=== PATIENT | male | born 1990 | race Two or more races ===

== ENCOUNTER 2019-03-17 21:28 | Inpatient (IN) | payer MEDICAID ==
[~2019-03-17] VITALS: Ht 162.6 cm; Wt 66.8 kg
--- NOTE | 2019-03-17 22:00 | NUR ---
YAHAIRA. C/O GEN ABDOMINAL PAIN X 1 DAY 02/26 PASCUAL, +N/-V/-D, VSS TO ER BED 3 AWAITING MED EVAL
[2019-03-17] MEDS ORDERED: ONDANSETRON HCL/PF 4 MG/2 ML VIAL ONE (22:16)
[2019-03-17] MEDS ORDERED: MORPHINE SULFATE INJ 2 MG/ML DISP.SYRIN ONE ×2 (22:16→22:17)
--- NOTE | 2019-03-17 22:19 | NUR ---
PT TAKEN TO CT
[2019-03-17] MEDS ORDERED: ONDANSETRON HCL/PF 4 MG/2 ML VIAL IVP ONE (22:30)
[2019-03-17] MEDS ORDERED: IV NS 0.9% 1,000 ML BAG IV ONE (22:30)
[2019-03-17] MEDS ORDERED: MORPHINE SULFATE INJ 2 MG/ML DISP.SYRIN IV ONE (22:30)
[2019-03-17 22:35] LABS: APPEARANCE,URINE Clear (CLEAR); BILIRUBIN,URINE SMALL (NEGATIVE); BLOOD, URINE Trace-intact Ery/uL (NEGATIVE); COLOR,URINE Yellow (YELLOW); KETONES,URINE 80 (NEGATIVE); LEUKOCYTE ESTERASE ,URINE Negative (NEGATIVE); NITRITE, URINE Negative (NEGATIVE); PH,URINE 6.5 (5.0-8.0); PROTEIN,URINE Negative (NEGATIVE); UGLUCOSE Negative (NEGATIVE)
[2019-03-17 22:45] LABS: BASOPHILS # (AUTO) 0.1 /CMM (0.0-0.2); BASOPHILS % (AUTO) 0.4 % (0.0-2.0); HEMATOCRIT 43 % (39-51); HEMOGLOBIN 14.4 g/dL (13.5-17.5); LYMPHOCYTES # (AUTO) 1.3 /CMM (0.8-4.8); MEAN CORPUSCULAR HGB CONC 33 g/dl (31.0-36.0); MEAN CORPUSCULAR VOLUME 87 fL (80-96); MONOCYTES # (AUTO) 0.8 /CMM (0.1-1.30); NEUTROPHILS # (AUTO) 13.9 /CMM (1.8-8.9); NEUTROPHILS % (AUTO) 86.6 % (43.0-81.0); PLATELET COUNT (AUTO) 247 /CMM (150-450); RED BLOOD CELL COUNT(AUTO) 4.96 MIL/uL (4.5-6.0); WHITE BLOOD COUNT (AUTO) 16.1 K/uL (4.3-11.0)
--- NOTE | 2019-03-17 22:51 | NUR ---
LINE ESTABLISHED, BLOOD SENT TO LAB FLUIDS RUNING, CONNECTED TO PATIENT FINANCIAL ADVOCATE VSS
[2019-03-17 22:52] LABS: CALCIUM, SERUM 8.6 mg/dL (8.5-10.1); CREATININE 0.8 mg/dL (0.6-1.3); POTASSIUM 3.6 mmol/L (3.5-5.1)
[2019-03-17 22:58] LABS: BILIRUBIN,DIRECT 0.2 mg/dL (0.0-0.2); BILIRUBIN,TOTAL 0.7 mg/dL (0.2-1.0); TOTAL PROTEIN, SERUM 7.2 g/dL (6.4-8.2)
--- NOTE | 2019-03-17 23:06 | NUR ---
MARTHA BRITTON ON THE PHONE WITH DR. STEINER (FINANCIAL OPERATIONS CONSULTANT SURGEON)
[2019-03-17] MEDS ORDERED: PIPERACILLIN /TAZOBACTAM 3.375 G VIAL IV ONE (23:15)
[2019-03-17] MEDS ORDERED: MORPHINE SULFATE INJ 2 MG/ML DISP.SYRIN IV PRN (23:30)
[2019-03-17] MEDS ORDERED: ONDANSETRON HCL/PF 4 MG/2 ML VIAL IVP PRN (23:30)
[2019-03-17] MEDS ORDERED: MAGNESIUM HYDROXIDE 30 ML UDC PO PRN (23:30)
[2019-03-17] MEDS ORDERED: MAG HYDROX/AL HYDROX/SIMETH 30 ML UDC PO PRN (23:30)
[2019-03-17] MEDS ORDERED: PIPERACILLIN /TAZOBACTAM 3.375 G in IV D5W 50 ML IV ONE (23:30)
[2019-03-17] MEDS ORDERED: ACETAMINOPHEN 325 MG TABLET PO PRN (23:30)
[2019-03-17] MEDS ORDERED: ACETAMINOPHEN 650 MG/SUPP.RECT RC PRN (23:30)
--- NOTE | 2019-03-17 23:30 | NUR ---
BED ASSIGNMENT 314-2
--- NOTE | 2019-03-17 23:37 | NUR ---
CALLED IN REPORT TO CHRISTIANO NERI
[2019-03-17] MEDS ORDERED: ENOXAPARIN SODIUM 40 MG/0.4 ML DISP.SYRIN SQ ONE (23:45)
[2019-03-18] VITALS (14 sets, daily range): BP systolic 94–119; BP diastolic 46–99
--- NOTE | 2019-03-18 00:08 | NUR ---
RN medsur notes Contacted and informed Dr. Saul about lovenox 40 mg. Pt is having a surgery tomorrow morning. MD ordered to hold Lovenox. Hold lovenox 40 mg per MD ordered. Order carried out. Will continue to monitor.
--- NOTE | 2019-03-18 00:10 | NUR ---
RN abhinavsurkim notes Received Pt from ER. Pt arrived at the unit by a marcoraustin by ACLS protocol. Pt is 28 YO M with a diagnose acute appendicitis by Dr. Zarco. Pt is alert and oriented X4. Pt speaks [place] and able to make needs known. Pt's friend at the bedside. Respiration is normal in room air. No SOB. No nausea or vomiting. Pt denies any pain or discomfort at this time. IV sites at LAC # 18 is clean, intact, patent and flush without resistance. Skin assessment done. Pt skin is intact. Pt belongings was checked by EBER Montez. Admission order is received. Pt NPO since 8 pm. Hitchita Pt to the room and the use of call light. Instructed to call. Safety precautions is maintained all the time. Bed at low position, brakes locked, side rails up X3 and call light is within reach. Will continue to monitor.
--- NOTE | 2019-03-18 00:12 | NUR ---
TAKEN TO FLOOR VIA ACLS PROTOCOL;
[2019-03-18] MEDS: IV NS 0.9% 1,000 ML IV PRN (00:13)
--- NOTE | 2019-03-18 00:40 | NUR ---
RN medsurg notes Dr. Jose G Beverly at the bedside. DARON Santa at the bed side helped with translation. POC was discussed with Pt. Informed consent for laparoscopic appendectomy vs open is signed by Pt. Pt verbalize understanding.
[2019-03-18] MEDS ORDERED: ANESTHESIA TRAY IN PYXIS 1 EA TRAY MC ONE (01:08)
[2019-03-18] MEDS ORDERED: ROCURONIUM BROMIDE 50 MG/5 ML ONE (01:15)
[2019-03-18] MEDS ORDERED: SUCCINYLCHOLINE CHLORIDE 20 MG/ML VIAL ONE (01:15)
[2019-03-18] MEDS ORDERED: HYDROMORPHONE INJ 2 MG/ML DISP.SYRIN ONE (01:15)
--- NOTE | 2019-03-18 01:19 | NUR ---
DARON ramirez notes Pt is going for surgery. Informed consent for laparoscopic versus open appendectomy is signed by Pt. Checked list is done. EKG is done. Pt verbalize understanding.
[2019-03-18] MEDS ORDERED: MIDAZOLAM HCL 2 MG/2ML VIAL ONE (01:35)
[2019-03-18] MEDS ORDERED: BUPIVACAINE MPF W/EPI 0.25% 30 ML VIAL ONE (01:52)
[2019-03-18] MEDS ORDERED: DESFLURANE 240 ML BOTTLE IH ONE (02:10)
[2019-03-18 02:52] LABS: BACTERIA,URINE Few /HPF (None Seen); RBC,URINE 0-2 /HPF (0-2); SQUAMOUS EPITHELIAL CELL,UR Rare /HPF (None Seen)
--- NOTE | 2019-03-18 03:00 | NUR ---
DARON ramirez notes Pt is back from the surgery. VS is stable. Will continue to monitor.
[2019-03-18] MEDS ORDERED: PIPERACILLIN /TAZOBACTAM 3.375 G VIAL IV ONE (05:40)
[2019-03-18] MEDS: PIPERACILLIN /TAZOBACTAM 3.375 G in IV D5W 50 ML IV SCH ×3 (05:48→17:13)
[2019-03-18 06:25] LABS: BASOPHILS % (AUTO) 0.1 % (0.0-2.0); HEMATOCRIT 42 % (39-51); HEMOGLOBIN 13.8 g/dL (13.5-17.5); LYMPHOCYTES # (AUTO) 1.1 /CMM (0.8-4.8); LYMPHOCYTES % (AUTO) 7.2 % (20.0-44.0); MEAN CORPUSCULAR HGB CONC 33 g/dl (31.0-36.0); MEAN CORPUSCULAR VOLUME 88 fL (80-96); MONOCYTES # (AUTO) 0.4 /CMM (0.1-1.30); MONOCYTES % (AUTO) 2.5 % (2.0-12.0); NEUTROPHILS # (AUTO) 13.1 /CMM (1.8-8.9); NEUTROPHILS % (AUTO) 90.2 % (43.0-81.0); PLATELET COUNT (AUTO) 227 /CMM (150-450); WHITE BLOOD COUNT (AUTO) 14.5 K/uL (4.3-11.0)
--- NOTE | 2019-03-18 07:08 | NUR ---
RN medsurg notes Pt is resting in bed comfortably. No SOB. No nausea or vomiting. Pt denies pain or discomfort at this time. IV sites at LAC # 18 is clean, intact, patent and infusing well NS @ 75 ml/hr. Surgical dressing at abdomen is clean, intact and dry. Kept clean, dry and comfortable. VS is stable. Routine meds were given as ordered. Instructed to call. Safety precautions is maintained. Bed at low position, brakes locked, side rails upX2 and call light is within reach. Will endorse to morning nurse for JAZIEL.
[2019-03-18 07:12] LABS: CALCIUM, SERUM 8.2 mg/dL (8.5-10.1); CREATININE 0.8 mg/dL (0.6-1.3); PHOSPHORUS 3.3 mg/dL (2.5-4.9); POTASSIUM 4.1 mmol/L (3.5-5.1)
--- NOTE | 2019-03-18 08:00 | NUR ---
RN medsurg notes Pt is resting in bed comfortably. No SOB. No nausea or vomiting. Pt denies pain or discomfort at this time. IV sites at LAC # 18 is clean, intact, patent and infusing well NS @ 75 ml/hr. Surgical dressing at abdomen is clean, intact and dry. Kept clean, dry and comfortable. VS is stable. Routine meds were given as ordered. Instructed to call. Safety precautions is maintained. Bed at low position, brakes locked, side rails upX2 and call light is within reach.
[2019-03-18] MEDS: PANTOPRAZOLE 40 MG VIAL IV SCH (09:20)
--- NOTE | 2019-03-18 19:04 | NUR ---
PT RESTING IN BED WITH NO S/S OF PAIN OR DISTRESS.WITH ONGOING IVF NS AT 75 ML/HR INFUSING WELL.CALL LIGHT PLACED WITHIN REACH.
--- NOTE | 2019-03-18 19:50 | NUR ---
SEASONAL WAREHOUSE ASSOCIATE NOTE: PATIENT RESTING IN BED, NO ACUTE DISTRESS NOTED. BREATHING EVEN AND UNLABORED, NO SOB NOTED. IV IN PLACE TO LAC, INFUSING NS AT 75 ML/HR. BED LOCKED AND IN LOWEST POSITION, CALL LIGHT IN REACH. WILL CONTINUE TO MONITOR. Addendum: 03/18/19 at 2018 by YESSI SHAH RN PER ONLY MS
[2019-03-18] MEDS ORDERED: ENOXAPARIN SODIUM 40 MG/0.4 ML DISP.SYRIN SQ SCH (21:00)
--- NOTE | 2019-03-18 23:05 | NUR ---
MS RN NOTE: REPORT GIVEN TO PAUL, PATIENT RESTING IN BED, NO ACUTE DISTRESS NOTED.
--- NOTE | 2019-03-18 23:15 | NUR ---
ms clarke initial notes received report form another nurse. pt resting comfortably in bed without any discomfort noted at this time. IVF NS at 75ml/hr infusing on his left AC. kept him warm and comfortable at all times. place call light at reach. will continue monitoring.
[2019-03-19] MEDS: PIPERACILLIN /TAZOBACTAM 3.375 G in IV D5W 50 ML IV SCH ×3 (01:24→12:02)
[2019-03-19] MEDS: IV NS 0.9% 1,000 ML IV PRN (01:36)
--- NOTE | 2019-03-19 07:10 | NUR ---
ms telephone solicitor supervisor closing notes pt back to rest at this time. no signs of any discomfort noted. IVF still infusing. All due meds given and all needs met. slept well and stable janell the night. kept him warm and comfortable at all times. will endorse to am nurse for continuity of care.
--- NOTE | 2019-03-19 07:30 | NUR ---
M/S RN NOTES PATIENT AWAKE IN BED, NO RESPIRATORY DISTRESS, NO C/O PAIN AT THIS TIME. SKIN WARM TO TOUCH. IV NS INFUSING AT 75ML/HR ON THE LAC #18G, INTACT AND PATENT. PATIENT'S NEEDS ATTENDED. BED ON LOWEST LOCKED POSITION, CALL LIGHT WITHIN REACH. WILL CONTINUE TO MONITOR.
[2019-03-19 08:00] VITALS: BP 93/48
[2019-03-19] MEDS: PANTOPRAZOLE 40 MG VIAL IV SCH (09:09)
--- NOTE | 2019-03-19 14:40 | NUR ---
M/S RN NOTES PATIENT DISCHARGED IN STABLE CONDITION, NO RESPIRATORY DISTRESS, NO C/O PAIN. PATIENT GIVEN DISCHARGED INSTRUCTIONS, VERBALIZED UNDERSTANDING. SKIN ASSESSED, NO SKIN BREAKDOWN. PATIENT'S BELONGINGS ACCOUNTED FOR AND SIGNED. PATIENT'S IV REMOVED AND APPLIED PRESSURE DRESSING. PATIENT ESCORTED TO LOBBY. LEFT WITH FRIENDS VIA PRIVATE CAR.
== END 2019-03-19 14:39 | disposition home or self-care (01) | DRG 234 ==
LOC: ER 21:30 → MED 23:33 → EDBD 23:33 → MED 23:51
PROC: 0DTJ4ZZ Resection of Appendix, Percutaneous Endoscopic Approach (ICD-10-PCS; principal; 2019-03-18)
DX: K35.80 Unspecified acute appendicitis (principal); F10.10 Alcohol abuse, uncomplicated; F15.10 Other stimulant abuse, uncomplicated; F17.210 Nicotine dependence, cigarettes, uncomplicated
CPT/HCPCS: 36415; 80048-TC; 80076-TC; 81000-TC; 83690-TC; 83735-TC; 84100-TC; 84484-TC; 85025-TC; 85610-TC; 85730-TC; 87081-TC; 88304-TC; C9113; G0378; J0330; J0690; J1100; J1170; J1650; J1885; J2250; J2270; J2405; J2543; J2704; J2710; J3490; J7030; J7060